=== PATIENT | female | born 1955 | race Caucasian/White ===

== ENCOUNTER 2016-12-20 09:06 | Day surgery (SDC) | payer MEDICARE, MEDICAID ==
[~2016-12-20] VITALS: Ht 152.4 cm; Wt 64.5 kg
[~2016-12-20 09:06] MED LIST: ASCO100089 PO; CA C1TAB77 PO; CHOL10008 PO; DEXT10TA PO; DIAZ2TAB2 PO; DIL4T PO; ESTR50GE TD; FEXO-106 PO; GINK60CA PO; L.AC1CAP6 PO; Lactated Ringer's 1,000 ML IV ONE; MAGN250T29 PO; OMEG-38 PO; OMPR20CCR PO; OXYC-474 PO; OXYC10TA69 PO; RANI150T11 PO; TURM500C7 PO; UBID100C25 PO; VIT1TABL83 PO
[2016-12-20] MEDS ORDERED: Propofol 10,000 mCg/mL 20 mL Inj ONE (09:07)
[2016-12-20 09:19] VITALS: BP 105/65; PULSE 81; RESP 20; O2SAT 96
[2016-12-20] MEDS ORDERED: RANI150C4 PO (09:37)
[2016-12-20] MEDS ORDERED: Lactated Ringer's 1,000 ML IV SCH (09:39)
[2016-12-20] MEDS ORDERED: Ondansetron 2 mg/mL 2 mL Inj IVPUSH PRN (09:40)
[2016-12-20] MEDS ORDERED: MetoCLOpramide 5 mg/mL 2 mL Inj IVPUSH PRN (09:40)
[2016-12-20 10:24] VITALS: BP 98/72; PULSE 72; RESP 12; O2SAT 96
[2016-12-20 10:34] VITALS: BP 99/60; PULSE 66; RESP 16; O2SAT 98
--- NOTE | 2016-12-20 10:39 | ENDO ---
[address] [address] ENDOSCOPY PROCEDURE PATIENT: MARVIN ZHANG : 1955 MR#: [id number] ADMIT: 12/20/2016 JOB ID: [id number] DATE OF SERVICE: 12/20/2016 TYPE OF OPERATION: 1. Esophagogastroduodenoscopy with biopsy. 2. Colonoscopy. PREOPERATIVE DIAGNOSIS(ES): 1. Gastroesophageal reflux disease. 2. Dysphagia. 3. History of colon polyps. POSTOPERATIVE DIAGNOSIS(ES): 1. Widely open, patent Schatzki ring. 2. Mild nonerosive gastritis. 3. There are several 4 mm gastric polyps, removed by cold biopsy forceps. 4. Diverticulosis of the sigmoid and transverse colon, mild. ANESTHESIA: Monitored anesthesia care. COMPLICATIONS: None. BLOOD LOSS: Minimal. DESCRIPTION OF PROCEDURE: After risks and benefits explained to the patient, informed consent was obtained. After anesthesia administered, the upper endoscope was then inserted into the mouth, intubating through esophagus, stomach, second portion of the duodenum. Mucosa carefully examined. After procedure was done, the scope withdrawn, procedure terminated. A colonoscope was then inserted from rectum to cecum. Mucosa carefully examined. Prep of the patient was fair. At the end of the procedure, the scope withdrawn and the procedure terminated. FINDINGS: Upon inspection of the esophagus, there was a widely open, patent Schatzki ring seen at the distal esophagus. Z-line located 40 cm from incisors. Upon entering the stomach, there was mild nonerosive gastritis. There were also several gastric polyps seen in the body, largest size 4 mm diameter, and duodenal bulb and first and second portions. Biopsies obtained of antrum, body of stomach, mid and distal esophagus and the gastric polyp. Upon inspection of the anus, no masses, hemorrhoids, ulcers, or fissures that were seen. Throughout the entire examination, there was mild sigmoid and transverse colon diverticulosis. No polyps or masses were seen. Retroflexion was normal. IMPRESSIONS: 1. Mild sigmoid and transverse colon diverticulosis. 2. Mild nonerosive gastritis. 3. Several gastric polyps seen in the body of the stomach, largest size 4 mm diameter. 4. Widely open, patent Schatzki ring. RECOMMENDATION: 1. Await pathology results. 2. Antireflux medication. 3. Next colonoscopy in five years for history of colon polyps.
--- NOTE | 2016-12-20 15:38 | PCM.HPANE ---
Patient Data Surgeon Admitting Provider: Attending Provider:Azar Giraldo MD Primary Care Physician:Norris Lan MD Other Provider:[facility] Anesthesia Reason for Visit Colon Polyps, Gerd Ht/WT & BMI Body Mass Index Allergies Coded Allergies: Adhesive Tape (Verified Allergy, Unknown, 08/15/15) TAPE (Verified Allergy, Unknown, UNKNOWN, 08/15/15) cobalt (Verified Allergy, Unknown, 08/15/15) silicone (Verified Allergy, Unknown, 08/15/15) morphine (Verified Adverse Reaction, Severe, HALLUCINATIONS, 08/15/15) Past Anesthesia History Anesthesia History: Positive for:: Anesthesia Reactions (SLOW TO AWAKEN, BLEEDING AFTER ONE BACK PROCEDURE), Denies:: Abnormal Airway, Difficult Intubation, Fam Anesthesia Reaction, Fam Malignant Hypertherm, Malignant Hyperthermia Diabetes History Hx Diabetes?: No MRSA MRSA: No Medications Active Scripts Oxycodone ER (Oxycontin)10 Mg Tab.er.12h10 Mg PO TID #30 TABLET Prov:Sosa Alvarez S DPM 08/16/15 Reported Medications Ranitidine 150 Mg [id number] Mg PO BID Ref 0 12/20/16 Ranitidine (Zantac)150 Mg Ymgobt577 Mg PO BID 12/19/16 Oxycodone (Roxicodone)5 Mg Tablet5 Mg PO Q4H PRN For Pain Ref 0 12/19/16 Cholecalciferol (Vitamin D3) (Vitamin D3)1,000 Unit Tab.chew1,000 Unit PO DAILY 08/11/15 Ascorbic Acid (Vitamin C)1,000 Mg Tab.chew1,000 Mg PO DAILY Ref 0 08/11/15 Turmeric Root Extract (Turmeric)500 Mg Rcjjzls965 Mg PO DAILY 08/11/15 L.acidoph & Paracasei,B.lactis (Probiotic)10 Billion Cell Capsule1 Each PO DAILY 08/11/15 Magnesium Oxide (Magnesium)250 Mg Xukbuy756 Mg PO DAILY 08/11/15 Ginkgo Biloba [place] Extract (Ginkgo Biloba)60 Mg Wqxgmqg17 Mg PO DAILY 08/11/15 Fexofenadine 180 Mg Vizwqp013 Mg PO DAILY PRN For Itching 08/11/15 Estradiol (Estrogel)50 Gm Gel.pmp50 Gm TD DAILY to arm 08/11/15 Diazepam 2 Mg Tablet2 Mg PO BID PRN For Anxiety Ref 0 08/11/15 Dextroamphetamine 10 Mg Anrrvd33 Mg PO DAILY Ref 0 08/11/15 Ubidecarenone (Co Q-10)100 Mg Ppxvzyt570 Mg PO DAILY 08/11/15 Ca Carb/Vit D3/Mag Ox/Zn Oxide (Asif Mag Zinc + D3 Tablet)1 Each Tablet1 Each PO DAILY 08/11/15 Vit B Comp/C/FA/Iron/Vit E (Vitamin B Complex Tablet)1 Each Tablet1 Each PO DAILY 08/11/15 Discontinued Reported Medications Mobile-3/Dha/Epa/Fish Oil (Fish Oil 1,000 mg Softgel)1 Each Capsule1 Each PO DAILY 12/19/16 Omeprazole (Prilosec)20 Mg Capcr20 Mg PO BID 30 Days Ref 0 08/11/15 Discontinued Scripts Hydromorphone (Dilaudid)4 Mg Tablet4 Mg PO Q4H PRN Pain #60 TABLET Ref 0 Prov:Sosa Alvarez DPM 08/16/15 Crutch 1 Each Each #2 EACH MC DIRECTED PRN nonweightbearing. Prov:Sosa Alvarez DPM 08/16/15 Diazepam 2 Mg Tablet2 Mg PO BID PRN For Anxiety #60 TABLET Ref 0 Prov:Genie Alvareza S DPM 08/16/15 History History of ENT Problems?: No HEENT History: Denies:: Abnormal Airway Difficult Intubation Dysphagia Hearing Problem Hx of Heart Problems?: No Cardiovascular History: Positive for:: Rheumatic Fever (NO MURMUR) Denies:: Atrial Fibrillation Chest Pain Heart Murmur Hypertension Valvular Heart Disease Hx of Respiratory Problem?: No Respiratory History: Positive for:: Use of C-PAP Machine (MILD JAIME+ NO CPAP) Hx Neurologic Problems?: No Neurological History: Denies:: CVA Dementia Hx of GI Problems?: Yes Gastrointestinal History: Positive for:: Gastroesphageal Reflux Hiatal Hernia Denies:: Cirrhosis Diverticulitis Rectal Bleeding Hx of Problems?: Yes Female Hx: Denies:: Currently Skin History: Positive for:: History Skin Disorders? (SENSITIVE SKIN W/ INTERMITTANT RASHES) Pressure Ulcers (CURRENTLY HAS "BLISTER" ON RT HEEL) Hx Musculoskeletal Problems?: Yes Musculoskeletal History: Positive for:: Degenerative Joint (RT KNEE) Musculoskeletal Trauma (S/P ORIF WRIST,ACL RPR) Denies:: Joint Replacement Hx of Psycho/Social Problems?: Yes Psycho Social History: Positive for:: Anxiety Hx Depression Hx Surgeries?: Yes (6 back surgeries bladder repair right arm repair bunionectomy acl hysterect) Hx Any Other Health Problems?: Yes Other History: Positive for:: Hospitalization Denies:: Cancer Endocrine Disease Thyroid Disease History Blood Transfusions: Positive for:: Blood Transfusions Denies:: Blood Transfuse Reaction Hx Diabetes: No Hx Alcohol Use: YesHx Substance Use: NoHave You Smoked inLast 12 mo: No Stop/Bang Risk Assessment Category Category 1A: Patient has history of documented sleep apnea, and HAS NOT received any narcotic, sedative or anesthesia administration during this stay. Category 1B: Patient has history of documented sleep apnea, and HAS received any narcotic , sedative or anesthesia administration during this stay Category 2: Patient has SUSPECTED Obstructive Sleep Apnea, and HAS received any narcotic , sedative or anesthesia administration during this stay. Category 3: Patient has SUSPECTED Obstructive Sleep Apnea and HAS NOT received narcotic, sedative or anesthesia administration during this stay. Category 4: Outpatient in Procedural Areas with known sleep apnea or who screen positive for High Risk via the STOP/BANG questionnaire. Exam Exam General Appearance: Alert, Oriented X3, Cooperative, No Acute Distress HEENT/AIRWAY: MP 2 Lungs: Clear to Auscultation, Normal Air Movement Heart: Exam Unremarkable, Regular Rate/Rhythm, No Murmurs/Rubs/Gallops Plan Impression Patient chart reviewed, patient interviewed and anesthestic plan with risks, benefits, and alternatives discussed, and informed consent obtained. NPO Status: 08/14/15 AT 1999 ASA Physical Status: ASA2 Mod Systemic Disease Anesthetic Plan: MAC Bene/Risks/Altern/Consents: Yes HP Complete Prior to Induction: Yes Kemal Chow MD Dec 20, 2016 07:31
--- NOTE | 2016-12-20 15:38 | PCM.ANEP1 ---
Post Anesthesia Phase 1 PACU Phase 1 Assessment Vital Signs Vital Signs Date Time Temp Pulse Resp B/P Pulse Ox O2 Delivery O2 Flow Rate FiO2 12/20/16 10:34 66 16 99/60 98 Room Air 12/20/16 10:24 36.3 72 12 98/72 96 Room Air 12/20/16 09:19 36.4 81 20 105/65 96 Room Air Anesthetic Administered: MAC Level of Alertness: Awake, talking COY's with Equal Strength: Yes Pain: No Nausea or Vomiting: No Oxygen Delivery: Room Air Lungs: Clear to Auscultation, Normal Air Movement Dermatome Level: Full Sensation Kemal Chow MD Dec 20, 2016 15:38
--- NOTE | 2016-12-20 15:38 | PCM.ANEP2 ---
Post Anesthesia Evaluation ASA/CMS Post Anesthesia VS in Patient's Normal Range?: Yes Resp Stable; Airway Patent?: Yes CV Function & Hydration Stable: Yes Mental Status Recovered?: Yes Pain control Satisfactory?: Yes N/V Control Satisfactory?: Yes Kemal Chow MD Dec 20, 2016 15:38
--- NOTE | 2016-12-23 16:26 | PATH ---
SURGICAL PATHOLOGY Attending Physician:Azar Giraldo MD CASE STATUS: Signed Out PATIENT NAME: MARVIN ZHANG PID: [id number] : 1955 DATE COLLECTED:12/20/2016 14:58 SPECIMEN: 1: Stomach, Antrum, Biopsy 2: Gastric, Biopsy 3: Stomach, Polyp, Biopsy 4: Esophagus, Biopsy 5: Esophagus, Biopsy CLINICAL HISTORY: 1: ANTRUM BIOPSY 2: GASTRIC BIOPSY 3: GASTRIC POLYP 4: DISTAL ESOPHAGUS BIOPSY 5: MID ESOPHAGUS BIOPSY FINAL DIAGNOSIS: 1.ANTRUM BIOPSY: ANTRAL MUCOSA WITH NO DIAGNOSTIC ALTERATIONS. Negative for Helicobacter organisms. Negative for intestinal metaplasia. Negative for dysplasia and malignancy. 2.GASTRIC BODY BIOPSY: BODY MUCOSA WITH NO DIAGNOSTIC ALTERATIONS. Negative for Helicobacter organisms. Negative for intestinal metaplasia. Negative for dysplasia and malignancy. 3.GASTRIC POLYP: FUNDIC GLAND POLYP. Negative for intestinal metaplasia. Negative for dysplasia and malignancy. 4.DISTAL ESOPHAGUS BIOPSY: SQUAMOCOLUMNAR MUCOSA WITH MILD INFLAMMATORY CHANGES CONSISTENT WITH REFLUX. Negative for intestinal/Puri' s metaplasia. Negative for dysplasia and malignancy. 5.MID ESOPHAGUS BIOPSY: SQUAMOUS MUCOSA WITH NO DIAGNOSTIC ALTERATIONS. Negative for intestinal/Puri' s metaplasia. Negative for dysplasia and malignancy. Eosinophils are not increased. ICD10 code K31.7 GROSS DESCRIPTION: The specimen is received in five formalin filled containers labeled with the patient's name. 1). The specimen is sublabeled "antrum" and consists of 2 portions of tissue which aggregate to 0.3 x 0.3 x 0.2 CM. The specimen is entirely submitted in cassette 1A. 2). The specimen is sublabeled "gastric" and consists of 2 portions of tissue which aggregate to 0.4 x 0.3 x 0.2 CM. The specimen is entirely submitted in cassette 2A. 3). The specimen is sublabeled "gastric polyp" and consists of a 0.4 x 0.4 x 0.3 CM portion of tissue which is entirely submitted in cassettes 3A. 4). The specimen is sublabeled "distal esophagus" and consists of a 0.3 x 0.3 x 0.3 CM portion of tissue which is entirely submitted in cassette 4A. 5). The specimen is sublabeled "midesophagus" and consists of a 0.3 x 0.3 x 0.2 CM portion of tissue which is entirely submitted in cassette 5A. 12/20/2016 DAC MICRO DESCRIPTION: See diagnosis. ICD-9 CODES: CPT CODES: 1: 11059 2: 08890 3: 26696 4: 62407 5: 97366 Electronically Signed Out Neetu Ugalde MD [facility] [address], [place] [address] Technical component performed at [facility], [address], [place], [address]
== END 2016-12-20 23:59 | disposition home or self-care (01) ==
LOC: END 09:06
PROVIDERS: ATTEND Internal Medicine Gastroenterology
DX: Z12.11 Encounter for screening for malignant neoplasm of colon (principal); Z86.010 Personal history of colon polyps; K57.30 Diverticulosis of large intestine without perforation or abscess without bleeding; R13.10 Dysphagia, unspecified; K21.9 Gastro-esophageal reflux disease without esophagitis; K22.2 Esophageal obstruction; K31.7 Polyp of stomach and duodenum; K29.70 Gastritis, unspecified, without bleeding; F41.9 Anxiety disorder, unspecified; G47.33 Obstructive sleep apnea (adult) (pediatric); K44.9 Diaphragmatic hernia without obstruction or gangrene; F32.9 Major depressive disorder, single episode, unspecified
CPT/HCPCS: 43239; G0105; J7120